=== PATIENT | male | born 1975 | race Caucasian/White ===

== ENCOUNTER → 2019-02-21 | Outpatient (REF) | payer OTHER ==
[2019-02-21 13:40] LABS: URIC ACID 5.4 MG/DL (3.5-7.2)
== END ==
LOC: M LAB REF 13:20
PROVIDERS: ATTEND Registered Nurse
DX: Z98.84 Bariatric surgery status (principal); M10.9 Gout, unspecified

== ENCOUNTER → 2020-04-15 | Outpatient (REF) | payer OTHER ==
[2020-04-15 15:12] LABS: URIC ACID 6.8 MG/DL (3.5-7.2)
== END ==
LOC: M LAB REF 11:22
PROVIDERS: ATTEND Registered Nurse
DX: Z98.84 Bariatric surgery status (principal); M10.9 Gout, unspecified

== ENCOUNTER → 2020-05-03 | Outpatient (CLI) | payer OTHER ==
[~2020-05-03] MED LIST: OMEP-218 PO; PROB500T29 PO
== END ==
LOC: M LABSMTC 14:17
PROVIDERS: ATTEND Anesthesiology
DX: Z01.812 Encounter for preprocedural laboratory examination (principal); Z20.822 Contact with and (suspected) exposure to COVID-19

== ENCOUNTER 2020-05-08 10:48 | Day surgery (SDC) | payer BC, OTHER ==
[~2020-05-08] VITALS: Ht 177.8 cm; Wt 132.0 kg
[~2020-05-08 10:48] MED LIST changes: +NS 1,000 ML IV ONE
[2020-05-08] MEDS ORDERED: fentaNYL 100 MCG/2 ML INJECTION (J3010) As Ordered ONE (11:33)
[2020-05-08] MEDS ORDERED: LIDOCAINE 2% 100MG/5ML SDV (FOR ANES.) As Ordered ONE (11:33)
[2020-05-08] MEDS ORDERED: propofoL 200 MG/20 ML VIAL As Ordered ONE (11:34)
--- NOTE | 2020-05-08 12:23 | ROOR ---
Patient Name: Jesus Hopkins Procedure Date: 05/08/2020 9:22 AM Date of : 1975 Age: 44 Room: [facility] Gender: Male Note Status: Finalized Procedure: Upper GI endoscopy Indications: Heartburn Providers: DO Arie Gray MD: Loly Bonner NP Requesting Provider: Medicines: Propofol per Anesthesia Complications: No immediate complications. Procedure: Pre-Anesthesia Assessment: - Prior to the procedure, a History and Physical was performed, and patient medications and allergies were reviewed. The patient is competent. The risks and benefits of the procedure and the sedation options and risks were discussed with the patient. All questions were answered and informed consent was obtained. Patient identification and proposed procedure were verified by the physician, the nurse, the anesthesiologist and the technician support association in the endoscopy suite. Mental Status Examination: alert and oriented. Airway Examination: normal oropharyngeal airway and neck mobility. Respiratory Examination: clear to auscultation. CV Examination: normal. Prophylactic Antibiotics: The patient does not require prophylactic antibiotics. Prior Anticoagulants: The patient has taken no previous anticoagulant or antiplatelet agents. ASA Grade Assessment: III - A patient with severe systemic disease. After reviewing the risks and benefits, the patient was deemed in satisfactory condition to undergo the procedure. The anesthesia plan was to use monitored anesthesia care (MAC). Immediately prior to administration of medications, the patient was re-assessed for adequacy to receive sedatives. The heart rate, respiratory rate, oxygen saturations, blood pressure, adequacy of pulmonary ventilation, and response to care were monitored throughout the procedure. The physical status of the patient was re-assessed after the procedure. The Endoscope was introduced through the mouth, and advanced to the afferent and efferent jejunal loops. The upper GI endoscopy was accomplished without difficulty. The patient tolerated the procedure well. Findings: The esophagus was normal. The stomach was normal. Impression: - Normal esophagus. - Normal stomach. - No specimens collected. Recommendation: - Patient has a contact number available for emergencies. The signs and symptoms of potential delayed complications were discussed with the patient. Return to normal activities tomorrow. Written discharge instructions were provided to the patient. - Return to my office PRN. Procedure Code(s): --- Professional --- 04985, Esophagogastroduodenoscopy, flexible, transoral; diagnostic, including collection of specimen(s) by brushing or washing, when performed (separate procedure) Diagnosis Code(s): --- Professional --- R12, Heartburn CPT copyright 2019 [employer]. All rights reserved. The codes documented in this report are preliminary and upon professional fee coder review may be revised to meet current compliance requirements. Leonardo Collazo DO 05/08/2020 12:22:32 PM Electronically signed by Leonardo Collazo DO Number of Addenda: 0 Note Initiated On: 05/08/2020 9:22 AM Estimated Blood Loss: Estimated blood loss: none.
[2020-05-08 12:51] VITALS: BP 136/66
== END 2020-05-08 12:51 | disposition home or self-care (01) ==
LOC: M OPP 10:48
PROVIDERS: ATTEND Surgery
DX: R12 Heartburn (principal); K21.9 Gastro-esophageal reflux disease without esophagitis; Z87.891 Personal history of nicotine dependence; Z98.84 Bariatric surgery status
CPT/HCPCS: 43235; J3010

== ENCOUNTER → 2020-12-03 | Outpatient (REF) | payer BC, OTHER ==
[~2020-12-03] MED LIST changes: -NS 1,000 ML IV ONE
[2020-12-04 09:58] LABS: H PYLORI QUALITATIVE IgG NEGATIVE (NEGATIVE)
== END ==
LOC: M LAB REF 16:59
PROVIDERS: ATTEND Registered Nurse
DX: R07.89 Other chest pain (principal)